=== PATIENT | male | born 1995 | race Caucasian/White ===

== ENCOUNTER 2016-10-14 19:17 | Emergency (ER) | payer BC ==
[~2016-10-14] VITALS: Ht 190.5 cm; Wt 131.5 kg
[~2016-10-14 19:17] MED LIST: ONDA4TAB8 PO; TRAM-297 PO
[2016-10-14 19:19] VITALS: BP 129/92
[2016-10-14] MEDS ORDERED: IBUPROFEN 600 MG TAB PO ONE (22:30)
== END 2016-10-14 23:39 | disposition home or self-care (01) ==
LOC: ER 19:27
DX: S80.02XA Contusion of left knee, initial encounter (principal); W21.03XA Struck by baseball, initial encounter; Y93.89 Activity, other specified; Y99.8 Other external cause status; Y92.89 Other specified places as the place of occurrence of the external cause
CPT/HCPCS: 73562